=== PATIENT | female | born 1975 | race African-American/Black ===

== ENCOUNTER 2017-04-02 16:33 | Emergency (ER) | payer OTHER ==
[~2017-04-02] VITALS: Ht 157.5 cm; Wt 77.5 kg
[2017-04-02] MEDS ORDERED: TETANUS, DIPHTHERIA, PERTUSSIS VAC/PF 0.5ML (>7YR OLD) IM ONE (18:45)
[2017-04-02] MEDS ORDERED: LIDOCAINE HCL 1% 20ML VIAL (Pyxis) INJ MC ONE (18:45)
[2017-04-02] MEDS ORDERED: BACITRACIN ZINC OINT UDPKT TOP ONE (18:45)
[2017-04-02 19:59] VITALS: BP 144/89
== END 2017-04-02 20:08 | disposition home or self-care (01) ==
LOC: ER 16:33
DX: S01.81XA Laceration without foreign body of other part of head, initial encounter (principal); W22.8XXA Striking against or struck by other objects, initial encounter; Y93.89 Activity, other specified; Y92.89 Other specified places as the place of occurrence of the external cause; Z23 Encounter for immunization; F17.210 Nicotine dependence, cigarettes, uncomplicated
CPT/HCPCS: 12011; 90471; 90715; 99283; J3490